=== PATIENT | female | born 1945 | race African-American/Black ===

== ENCOUNTER 2016-12-28 06:21 | Outpatient (CLI) | payer MEDICARE ==
[2016-12-28 07:11] LABS: Blood Urea Nitrogen 12 mg/dL (7-17)
[2016-12-28] MEDS ORDERED: NACL ONE (08:53)
--- NOTE | 2016-12-28 10:31 | Cat Scan Report ---
CT SCAN OF THE ABDOMEN AND PELVIS WITH CONTRAST: HISTORY: Cervical cancer, evaluate for metastatic disease. TECHNIQUE: Helical CT in 1.25mm intervals following IV contrast. Sagittal and coronal reconstructions. Comparison: 07/11/14. FINDINGS: The liver is normal in size and is without focal defect. Mild hepatic steatosis is unchanged. No gallstones or biliary dilatation are noted. The spleen and pancreas demonstrate a normal size and attenuation with no evidence of abnormal mass. The kidneys are normal in size and position with no evidence of hydronephrosis or mass. Tiny right renal cysts are unchanged. The adrenal glands are normal. There is no intestinal obstruction or ascites. Normal appendix. The abdominal aorta is normal. Hysterectomy changes are identified. There is no evidence of peritoneal air or fluid. There is no evidence of any abnormal masses or fluid collections within the pelvis. No adenopathy is identified. The bladder is normal. Heart size is normal. The visualized lung bases are clear. Scoliosis and degenerative changes in the thoracolumbar spine are noted. No suspicious bony lesion. IMPRESSION: No evidence for metastatic disease to the abdomen or pelvis. No significant change since 07/11/14.
== END 2016-12-28 06:22 | disposition home or self-care (01) ==
LOC: CT 06:21
PROVIDERS: ATTEND Obstetrics & Gynecology Gynecologic Oncology
DX: C53.1 Malignant neoplasm of exocervix (principal); C79.9 Secondary malignant neoplasm of unspecified site; R87.629 Unspecified abnormal cytological findings in specimens from vagina; M47.895 Other spondylosis, thoracolumbar region; M41.85 Other forms of scoliosis, thoracolumbar region; Z90.710 Acquired absence of both cervix and uterus
CPT/HCPCS: 36415; 74177; 82565; 84520; Q9967